=== PATIENT | male | born 1995 | race Caucasian/White ===

== ENCOUNTER → 2017-02-02 | Outpatient (REF) | payer BC ==
[~2017-02-02] MED LIST: AMBI10TA PO; AZEL0.055; BUPR150T3 PO; CLEO1GEL TOP; CLEO2CRE PV; CLIN1.2G TOP; DEPA1TAB3 PO; DEPA250T32 PO; DEPA500T2 PO; DEPAKOTE PO; INVE156I IM; KLON1TAB PO; LAMI50TA2 PO; LITH300C PO; LITH45TASA PO; LITHIUM PO; MINO100C4 PO; PROP60TA14 PO; PROPRANOLOL PO; TEMA15CA2 PO; TRAZ50TA11 PO; VISI0.054 OU; WELL100T PO; ZYPR15TA3 PO; ZYPR1INJ PO; accutane PO
== END ==
LOC: M LAB REF 16:39
PROVIDERS: ATTEND Physician Assistant
DX: J02.9 Acute pharyngitis, unspecified (principal)

== ENCOUNTER 2023-01-13 14:30 | Inpatient (IN) | payer BC, OTHER ==
[~2023-01-13] VITALS: Ht 172.7 cm; Wt 91.6 kg
[~2023-01-13 14:30] MED LIST changes: +BUPR150T12 PO; -BUPR150T3 PO; +TRAZ-252 PO; -TRAZ50TA11 PO
[2023-01-13 15:56] LABS: HEMATOCRIT 46.6 % (42.0-52.0); HEMOGLOBIN 16.2 g/dl (13.5-17.5); MEAN CORPUSCULAR HEMOGLOBIN 31.6 pg (27.0-33.0); MEAN CORPUSCULAR HGB CONC 34.8 g/dl (32.0-36.5); PLATELET COUNT, AUTOMATED 364 10^3/uL (150-450); RED BLOOD COUNT 5.12 10^6/uL (4.30-6.10)
[2023-01-13 16:12] LABS: AMPHETAMINES LEVEL URINE NEGATIVE (NEGATIVE); BARBITURATES URINE NEGATIVE (NEGATIVE); BENZODIAZEPINES URINE NEGATIVE (NEGATIVE); METHADONE URINE NEGATIVE (NEGATIVE); OPIATES URINE NEGATIVE (NEGATIVE); PHENCYCLIDINE URINE NEGATIVE (NEGATIVE)
[2023-01-13 16:13] LABS: CANNABINOIDS URINE POSITIVE (NEGATIVE); COCAINE METABOLITE URINE POSITIVE (NEGATIVE)
[2023-01-13 16:15] LABS: ETHYL ALCOHOL (ETHANOL) < 0.003 % (0.000-0.010)
[2023-01-13 16:16] LABS: ACETAMINOPHEN LEVEL < 2.0 UG/ML (10.0-20.0); SALICYLATE LEVEL < 3.0 MG/DL (<30)
[2023-01-13 16:17] LABS: ALBUMIN 4.4 G/DL (3.2-5.2); ALKALINE PHOSPHATASE 54 U/L (46-116); ALT/SGPT 44 U/L (7.0-40); AST/SGOT 36 U/L (<34); BILIRUBIN,DIRECT 0.2 MG/DL (<0.4); BILIRUBIN,TOTAL 0.7 MG/DL (0.3-1.2); BLOOD UREA NITROGEN 12 MG/DL (9-23); CARBON DIOXIDE LEVEL 27 MMOL/L (20-31); CHLORIDE LEVEL 105 MMOL/L (98-107); CREATININE FOR GFR 0.96 MG/DL (0.70-1.30); GLOMERULAR FILTRATION RATE > 60.0 (>60); GLUCOSE, FASTING 116 MG/DL (60-100); POTASSIUM SERUM 4.2 MMOL/L (3.5-5.1); SODIUM LEVEL 141 MMOL/L (136-145); TOTAL PROTEIN 7.4 G/DL (5.7-8.2)
[2023-01-13 16:19] LABS: THYROID STIMULATING HORMONE 0.444 uIU/ML (0.55-4.78)
[2023-01-13] MEDS ORDERED: NICOTINE 21MG/24HR 1 EA TRANSDERMAL TD ONE (18:25)
[2023-01-13] MEDS ORDERED: PROP40TA62 PO (18:48)
[2023-01-13] MEDS ORDERED: LAMI1TAB9 PO (18:55)
[2023-01-13] MEDS ORDERED: ADDE20CA3 PO (18:55)
[2023-01-13] MEDS ORDERED: SERO1TAB PO (18:55)
[2023-01-13] MEDS ORDERED: ADDE20TA PO (20:13)
[2023-01-13] MEDS ORDERED: VRAY1.5C PO (20:14)
[2023-01-13] MEDS ORDERED: HOME MED LIST COMPLETE! XX SCH (20:15)
[2023-01-13] MEDS ORDERED: OLANZapine INTRAMUSCULAR 10MG VIAL IM ONE (21:25)
[2023-01-13] MEDS ORDERED: LORazepam 2 MG/ML 1ML VIAL IV STA (21:47)
[2023-01-13] MEDS ORDERED: diphenhydrAMINE 50MG/ML VIAL IM ONE (21:50)
[2023-01-14] MEDS ORDERED: PROPRANOLOL 20 MG TAB PO SCH (09:00)
[2023-01-14] MEDS ORDERED: FINASTERIDE 5MG TAB PO SCH (09:00)
[2023-01-14] MEDS ORDERED: CARIPRAZINE 1.5MG CAPSULE (VRAYLAR) PO SCH (09:00)
[2023-01-14] MEDS ORDERED: lamoTRIgine 100MG TAB PO SCH (09:00)
[2023-01-14] MEDS: ADDERALL 5 MG TAB PO SCH ×2 (09:22→14:41)
[2023-01-14] MEDS ORDERED: LORazepam 1 MG TAB PO STA (11:52)
[2023-01-14] MEDS ORDERED: MOM 30ML SUSPENSION UDC PO PRN (14:20)
[2023-01-14] MEDS ORDERED: NICOTINE POLACRILEX 2 MG GUM PO PRN (14:35)
[2023-01-14] MEDS: NICOTINE 21MG/24HR 1 EA TRANSDERMAL TD SCH (17:10)
[2023-01-14] MEDS: OLANZapine ORAL DISINTEGRATING TAB 5MG PO PRN (17:11)
[2023-01-14 17:20] VITALS: BP 152/91; TEMP 96.5; O2SAT 97
[2023-01-14] MEDS: traZODone 50 MG TAB PO PRN (20:07)
[2023-01-14] MEDS: PROPRANOLOL 20 MG TAB PO SCH (22:09)
[2023-01-15] MEDS: QUEtiapine FUMARATE 100 MG TAB PO PRN ×2 (00:24→20:24)
[2023-01-15] MEDS: ACETAMINOPHEN TAB 650MG DOSE (2X325MG) PO PRN (03:15)
[2023-01-15 08:32] VITALS: BP 145/89
[2023-01-15] MEDS: PROPRANOLOL 20 MG TAB PO SCH ×2 (08:33→20:24)
[2023-01-15] MEDS: NICOTINE 21MG/24HR 1 EA TRANSDERMAL TD SCH (08:34)
[2023-01-15] MEDS: OLANZapine ORAL DISINTEGRATING TAB 5MG PO PRN ×2 (10:36→18:08)
[2023-01-15] MEDS: CARIPRAZINE 1.5MG CAPSULE (VRAYLAR) PO SCH (12:06)
[2023-01-15] MEDS: lamoTRIgine 100MG TAB PO SCH (12:07)
[2023-01-15 17:51] VITALS: BP 128/76; TEMP 97.7; O2SAT 96
[2023-01-15] MEDS: traZODone 50 MG TAB PO PRN (20:24)
[2023-01-16] MEDS: OLANZapine ORAL DISINTEGRATING TAB 5MG PO PRN (00:47)
[2023-01-16] MEDS: ACETAMINOPHEN TAB 650MG DOSE (2X325MG) PO PRN (00:58)
[2023-01-16] MEDS: MAALOX 30 ML SUSP *UDC PO PRN (04:55)
[2023-01-16 07:03] VITALS: BP 112/69; TEMP 97.6; O2SAT 97
[2023-01-16] MEDS: NICOTINE 21MG/24HR 1 EA TRANSDERMAL TD SCH (08:18)
[2023-01-16] MEDS: PROPRANOLOL 20 MG TAB PO SCH ×2 (08:18→20:16)
[2023-01-16] MEDS: CARIPRAZINE 1.5MG CAPSULE (VRAYLAR) PO SCH (08:18)
[2023-01-16] MEDS: lamoTRIgine 100MG TAB PO SCH (08:18)
[2023-01-16] MEDS ORDERED: CARIPRAZINE 1.5MG CAPSULE (VRAYLAR) PO ONE (09:50)
[2023-01-16 16:47] VITALS: BP 131/79; TEMP 98; O2SAT 100
[2023-01-16] MEDS: traZODone 100 MG TAB PO PRN (21:51)
[2023-01-16] MEDS: QUEtiapine FUMARATE 100 MG TAB PO PRN (21:51)
[2023-01-17] MEDS: diphenhydrAMINE 25MG CAP PO PRN ×2 (00:14→22:31)
[2023-01-17] MEDS: ACETAMINOPHEN TAB 650MG DOSE (2X325MG) PO PRN (00:15)
[2023-01-17] MEDS: OLANZapine ORAL DISINTEGRATING TAB 5MG PO PRN ×2 (04:15→23:56)
[2023-01-17 06:51] VITALS: TEMP 96.8; O2SAT 95
[2023-01-17] MEDS: PROPRANOLOL 20 MG TAB PO SCH ×2 (08:56→22:17)
[2023-01-17] MEDS: NICOTINE 21MG/24HR 1 EA TRANSDERMAL TD SCH (08:57)
[2023-01-17] MEDS: lamoTRIgine 100MG TAB PO SCH (08:57)
[2023-01-17] MEDS ORDERED: CARIPRAZINE 3MG CAPSULE (VRAYLAR) PO SCH (09:00)
[2023-01-17] MEDS: LITHIUM CARBONATE 150 MG CAP PO SCH ×2 (10:38→22:16)
[2023-01-17] MEDS: PALIPERIDONE 3MG ER TAB (INVEGA) PO SCH ×2 (10:38→22:16)
[2023-01-17 16:47] VITALS: BP 137/70; TEMP 98.1; O2SAT 99
[2023-01-17] MEDS: MAALOX 30 ML SUSP *UDC PO PRN (19:26)
[2023-01-17 19:50] VITALS: BP 132/79; TEMP 98.1; O2SAT 99
[2023-01-17] MEDS: traZODone 100 MG TAB PO PRN (22:31)
[2023-01-17] MEDS: QUEtiapine FUMARATE 100 MG TAB PO PRN (23:56)
[2023-01-18 06:30] VITALS: BP 126/65; TEMP 97.3; O2SAT 96
[2023-01-18 08:35] VITALS: BP 142/84
[2023-01-18] MEDS: lamoTRIgine 100MG TAB PO SCH (08:37)
[2023-01-18] MEDS: PALIPERIDONE 3MG ER TAB (INVEGA) PO SCH ×2 (08:38→20:42)
[2023-01-18] MEDS: LITHIUM CARBONATE 150 MG CAP PO SCH (08:38)
[2023-01-18] MEDS: PROPRANOLOL 20 MG TAB PO SCH ×2 (08:39→20:42)
[2023-01-18] MEDS: NICOTINE 21MG/24HR 1 EA TRANSDERMAL TD SCH (08:39)
[2023-01-18] MEDS ORDERED: CARIPRAZINE 1.5MG CAPSULE (VRAYLAR) PO SCH (09:00)
[2023-01-18] MEDS: FINASTERIDE 5MG TAB PO SCH (15:51)
[2023-01-18 18:55] VITALS: BP 145/77; TEMP 98
[2023-01-18] MEDS: SODIUM CHLORIDE NASAL 0.65% SPRAY BTL (OCEAN) SCH (20:39)
[2023-01-18] MEDS: LITHIUM CARBONATE 300 MG CAP PO SCH (20:42)
[2023-01-18] MEDS: traZODone 100 MG TAB PO PRN (20:42)
[2023-01-18] MEDS: diphenhydrAMINE 25MG CAP PO PRN (21:42)
[2023-01-19] MEDS: QUEtiapine FUMARATE 100 MG TAB PO PRN (01:26)
[2023-01-19 06:19] VITALS: BP 141/66; TEMP 98.4; O2SAT 98
[2023-01-19] MEDS: OLANZapine ORAL DISINTEGRATING TAB 5MG PO PRN ×2 (07:34→19:29)
[2023-01-19] MEDS: FINASTERIDE 5MG TAB PO SCH (09:30)
[2023-01-19] MEDS: PALIPERIDONE 3MG ER TAB (INVEGA) PO SCH ×2 (09:31→20:38)
[2023-01-19] MEDS: PROPRANOLOL 20 MG TAB PO SCH ×2 (09:32→20:38)
[2023-01-19] MEDS: LITHIUM CARBONATE 150 MG CAP PO SCH (09:32)
[2023-01-19] MEDS: lamoTRIgine 100MG TAB PO SCH (09:33)
[2023-01-19] MEDS: SODIUM CHLORIDE NASAL 0.65% SPRAY BTL (OCEAN) SCH ×2 (09:33→20:39)
[2023-01-19] MEDS: NICOTINE 21MG/24HR 1 EA TRANSDERMAL TD SCH (09:34)
[2023-01-19 18:00] VITALS: BP 118/90; TEMP 97.4
[2023-01-19] MEDS: LITHIUM CARBONATE 300 MG CAP PO SCH (20:38)
[2023-01-19] MEDS: traZODone 100 MG TAB PO PRN (23:35)
[2023-01-20] MEDS ORDERED: IBUPROFEN 400MG TAB PO PRN (04:20)
[2023-01-20] MEDS: ACETAMINOPHEN TAB 650MG DOSE (2X325MG) PO PRN (05:57)
[2023-01-20 07:08] VITALS: BP 129/87; TEMP 96.7; O2SAT 97
[2023-01-20] MEDS: PALIPERIDONE 3MG ER TAB (INVEGA) PO SCH ×2 (08:22→20:10)
[2023-01-20] MEDS: PROPRANOLOL 20 MG TAB PO SCH ×2 (08:23→20:14)
[2023-01-20] MEDS: SODIUM CHLORIDE NASAL 0.65% SPRAY BTL (OCEAN) SCH ×2 (08:24→20:10)
[2023-01-20] MEDS: lamoTRIgine 100MG TAB PO SCH (08:24)
[2023-01-20] MEDS: FINASTERIDE 5MG TAB PO SCH (08:24)
[2023-01-20] MEDS: LITHIUM CARBONATE 150 MG CAP PO SCH (08:25)
[2023-01-20] MEDS: NICOTINE POLACRILEX 2 MG GUM PO PRN ×3 (10:57→21:18)
[2023-01-20] MEDS: OLANZapine ORAL DISINTEGRATING TAB 5MG PO PRN (10:57)
[2023-01-20 17:01] VITALS: BP 119/68; TEMP 98.6; O2SAT 100
[2023-01-20] MEDS: QUEtiapine FUMARATE 100 MG TAB PO PRN (23:06)
[2023-01-21] MEDS: NICOTINE POLACRILEX 2 MG GUM PO PRN ×2 (05:47→15:09)
[2023-01-21] MEDS: OLANZapine ORAL DISINTEGRATING TAB 5MG PO PRN ×2 (06:19→23:43)
[2023-01-21 06:59] VITALS: BP 132/65; TEMP 98; O2SAT 97
[2023-01-21] MEDS: SODIUM CHLORIDE NASAL 0.65% SPRAY BTL (OCEAN) SCH ×2 (07:41→21:07)
[2023-01-21] MEDS: PALIPERIDONE 3MG ER TAB (INVEGA) PO SCH ×2 (07:42→21:07)
[2023-01-21] MEDS: PROPRANOLOL 20 MG TAB PO SCH ×2 (07:42→21:07)
[2023-01-21] MEDS: FINASTERIDE 5MG TAB PO SCH (07:42)
[2023-01-21] MEDS: lamoTRIgine 100MG TAB PO SCH (07:42)
[2023-01-21 17:00] VITALS: BP 118/61; TEMP 98; O2SAT 100
[2023-01-21] MEDS: diphenhydrAMINE 25MG CAP PO PRN (17:54)
[2023-01-21] MEDS: QUEtiapine FUMARATE 100 MG TAB PO PRN (21:07)
[2023-01-21] MEDS: traZODone 100 MG TAB PO PRN (21:07)
[2023-01-22] MEDS: MAALOX 30 ML SUSP *UDC PO PRN (02:37)
[2023-01-22] MEDS: NICOTINE POLACRILEX 2 MG GUM PO PRN ×4 (05:03→20:34)
[2023-01-22 06:42] VITALS: BP 113/57; TEMP 98.1; O2SAT 100
[2023-01-22] MEDS: SODIUM CHLORIDE NASAL 0.65% SPRAY BTL (OCEAN) SCH ×2 (08:04→20:19)
[2023-01-22] MEDS: PROPRANOLOL 20 MG TAB PO SCH ×2 (08:04→20:19)
[2023-01-22] MEDS: PALIPERIDONE 3MG ER TAB (INVEGA) PO SCH ×2 (08:05→20:19)
[2023-01-22] MEDS: lamoTRIgine 100MG TAB PO SCH (08:05)
[2023-01-22] MEDS: FINASTERIDE 5MG TAB PO SCH (08:05)
[2023-01-22] MEDS: ACETAMINOPHEN TAB 650MG DOSE (2X325MG) PO PRN (08:07)
[2023-01-22] MEDS: diphenhydrAMINE 25MG CAP PO PRN (10:53)
[2023-01-22] MEDS ORDERED: PALIPERIDONE PAL 234MG/1.5ML INJ (INVEGA)(FREE PSY INPT ONLY) IM ONE (11:00)
[2023-01-22] MEDS: OLANZapine ORAL DISINTEGRATING TAB 5MG PO PRN (14:48)
[2023-01-22 18:00] VITALS: BP 147/90; TEMP 97.4
[2023-01-22 18:55] VITALS: BP 147/90; TEMP 97.5; O2SAT 99
[2023-01-22] MEDS: traZODone 100 MG TAB PO PRN (20:19)
[2023-01-22] MEDS: QUEtiapine FUMARATE 100 MG TAB PO PRN (20:19)
[2023-01-23] MEDS: NICOTINE POLACRILEX 2 MG GUM PO PRN ×2 (01:47→08:08)
[2023-01-23 06:32] VITALS: BP 128/81; TEMP 97.9; O2SAT 98
[2023-01-23] MEDS: SODIUM CHLORIDE NASAL 0.65% SPRAY BTL (OCEAN) SCH (08:05)
[2023-01-23 08:06] VITALS: BP 128/81
[2023-01-23] MEDS: FINASTERIDE 5MG TAB PO SCH (08:06)
[2023-01-23] MEDS: lamoTRIgine 100MG TAB PO SCH (08:06)
[2023-01-23] MEDS: PROPRANOLOL 20 MG TAB PO SCH (08:06)
[2023-01-23] MEDS: PALIPERIDONE 3MG ER TAB (INVEGA) PO SCH (08:06)
[2023-01-23] MEDS ORDERED: QUET100T2 PO (09:55)
[2023-01-23] MEDS ORDERED: FINA5TAB2 PO (09:55)
[2023-01-23] MEDS ORDERED: LAMI1TAB9 PO (09:55)
[2023-01-23] MEDS ORDERED: TRAZ-257 PO (09:55)
[2023-01-23] MEDS ORDERED: PROP20TA PO (09:55)
[2023-01-23] MEDS ORDERED: BENA25CA4 PO (09:55)
[2023-01-23] MEDS: OLANZapine ORAL DISINTEGRATING TAB 5MG PO PRN (10:22)
[2023-01-23] MEDS ORDERED: PALI1TAB2 PO (10:27)
[2023-01-23] MEDS ORDERED: INVE156I IM (10:29)
[2023-01-23] MEDS ORDERED: INVE234I IM (10:29)
== END 2023-01-23 11:50 | disposition home or self-care (01) | DRG 753 ==
LOC: M ED 14:30 → M ED INP 01-14 14:19 → M PSY 01-14 15:24
PROVIDERS: ADMIT Student in an Organized Health Care Education/Training Program; ATTEND Student in an Organized Health Care Education/Training Program
DX: F31.9 Bipolar disorder, unspecified (principal); F14.10 Cocaine abuse, uncomplicated; F12.10 Cannabis abuse, uncomplicated; F17.210 Nicotine dependence, cigarettes, uncomplicated; F10.10 Alcohol abuse, uncomplicated; R74.01 Elevation of levels of liver transaminase levels; Z79.899 Other long term (current) drug therapy

== ENCOUNTER 2023-04-04 20:15 | Emergency (ER) | payer BC, OTHER ==
[~2023-04-04] VITALS: Ht 172.7 cm; Wt 101.1 kg
[~2023-04-04 20:15] MED LIST changes: +ADDE20CA3 PO; +ADDE20TA PO; +BENA25CA4 PO; +FINA5TAB2 PO; +INVE234I IM; +LAMI1TAB9 PO; +PALI1TAB2 PO; +PROP20TA PO; +PROP40TA62 PO; +QUET100T2 PO; +SERO1TAB PO; +TRAZ-257 PO; +VRAY1.5C PO
[2023-04-04 21:26] LABS: AMPHETAMINES LEVEL URINE NEGATIVE (NEGATIVE); BARBITURATES URINE NEGATIVE (NEGATIVE); BENZODIAZEPINES URINE NEGATIVE (NEGATIVE); METHADONE URINE NEGATIVE (NEGATIVE); PHENCYCLIDINE URINE NEGATIVE (NEGATIVE)
[2023-04-04 21:28] LABS: CANNABINOIDS URINE POSITIVE (NEGATIVE); COCAINE METABOLITE URINE POSITIVE (NEGATIVE); OPIATES URINE POSITIVE (NEGATIVE)
[2023-04-04 21:41] LABS: HEMATOCRIT 40.9 % (42.0-52.0); HEMOGLOBIN 14.1 g/dl (13.5-17.5); MEAN CORPUSCULAR HEMOGLOBIN 31.5 pg (27.0-33.0); MEAN CORPUSCULAR HGB CONC 34.5 g/dl (32.0-36.5); MEAN CORPUSCULAR VOLUME 91.5 fl (80.0-96.0); PLATELET COUNT, AUTOMATED 284 10^3/uL (150-450); RED BLOOD COUNT 4.47 10^6/uL (4.30-6.10); WHITE BLOOD COUNT 9.2 10^3/uL (4.0-10.0)
[2023-04-04] MEDS ORDERED: NICOTINE 21MG/24HR 1 EA TRANSDERMAL TD SCH (21:45)
[2023-04-04 22:14] LABS: ETHYL ALCOHOL (ETHANOL) < 0.003 % (0.000-0.010)
[2023-04-04 22:15] LABS: ACETAMINOPHEN LEVEL < 2.0 UG/ML (10.0-20.0); SALICYLATE LEVEL < 3.0 MG/DL (<30)
[2023-04-04 22:16] LABS: ALBUMIN 3.6 G/DL (3.2-5.2); ALKALINE PHOSPHATASE 46 U/L (46-116); ALT/SGPT 25 U/L (7.0-40); AST/SGOT 13 U/L (<34); BILIRUBIN,DIRECT 0.1 MG/DL (<0.4); BILIRUBIN,TOTAL 0.4 MG/DL (0.3-1.2); BLOOD UREA NITROGEN 10 MG/DL (9-23); CALCIUM LEVEL 8.8 MG/DL (8.5-10.1); CARBON DIOXIDE LEVEL 26 MMOL/L (20-31); CHLORIDE LEVEL 107 MMOL/L (98-107); CREATININE FOR GFR 0.86 MG/DL (0.70-1.30); GLOMERULAR FILTRATION RATE > 60.0 (>60); GLUCOSE, FASTING 105 MG/DL (60-100); POTASSIUM SERUM 4.1 MMOL/L (3.5-5.1); SODIUM LEVEL 139 MMOL/L (136-145); TOTAL PROTEIN 6.7 G/DL (5.7-8.2)
[2023-04-04 22:18] LABS: THYROID STIMULATING HORMONE 1.167 uIU/ML (0.55-4.78)
[2023-04-04] MEDS ORDERED: LORazepam 2 MG TAB PO ONE (22:35)
[2023-04-04] MEDS ORDERED: OLANZapine ORAL DISINTEGRATING TAB 5MG PO ONE (22:35)
[2023-04-04] MEDS ORDERED: LAMO200T3 PO (23:17)
[2023-04-04] MEDS ORDERED: HALO1TAB19 PO ×2 (23:17→23:52)
[2023-04-04] MEDS ORDERED: FINA5TAB2 PO (23:17)
[2023-04-04] MEDS ORDERED: QUET100T2 PO (23:17)
[2023-04-04] MEDS ORDERED: VRAY1.5C PO (23:17)
[2023-04-04] MEDS ORDERED: ADDE20TA PO (23:17)
[2023-04-04] MEDS ORDERED: PROP40TA62 PO (23:17)
[2023-04-04] MEDS ORDERED: ACETAMINOPHEN TAB 650MG DOSE (2X325MG) PO ONE (23:25)
[2023-04-04] MEDS ORDERED: HOME MED LIST COMPLETE! XX SCH (23:45)
[2023-04-05 03:01] VITALS: BP 100/56; TEMP 98.2; O2SAT 99
== END 2023-04-05 03:05 ==
LOC: M ED 20:15
DX: F31.10 Bipolar disorder, current episode manic without psychotic features, unspecified (principal); F90.9 Attention-deficit hyperactivity disorder, unspecified type; F19.10 Other psychoactive substance abuse, uncomplicated; Z79.899 Other long term (current) drug therapy